=== PATIENT | female | born 1960 | race Caucasian/White ===

== ENCOUNTER → 2018-01-19 09:26 | Outpatient (CLI) | payer MEDICARE, MEDICAID, SELFPAY ==
--- NOTE | 2018-01-19 | DI.ECHO.S_ITS ---
[facility] +---------+ : : [address] : : : : [id number] : : : : Phone: [phone]+ Echocardiogram Report + + :Name: SHLOMO MENDES Study Date: 01/19/2018 Height: 69 in : :[facility] Weight: 234 lb : : Gender: Female BSA: 2.2 m2 : :: 1960 Age: 57 yrs BP: 142/80 mmHg: :Reason For Study: Hypertension, Aortic stenosis : :Ordering Physician: Johann : :Clarice Little Performed By: Michelle Corado : + + Interpretation Summary 1) Normal left ventricular thickness, size, and sysotlic function (EF 60-65%. 2) Normal right ventricular size and function. 3) Aortic valve is mildly calcific with moderately reduced excursion. Bicuspid valve can't be excluded. 4) There is mild aortic stenosis (valve area 1.6cm2, mean gradient 16mmHg). Mild aortic regurgitation present. 5) Mitral valve is calcific with mild to moderate mitral stenosis (mean transmitral inflow gradient of 7.6mmHg, heart rate in the 70s). 6) Compared to the Echo done 06/08/2015, no significant change. Procedure: A two-dimensional transthoracic echocardiogram with color flow and Doppler was performed. The study quality was technically adequate. Comparison is made with the echocardiogram of 06/08/2015. The patient was in normal sinus rhythm during the exam. Left Ventricle: The left ventricle is normal in size. Left ventricular wall thickness is mildly increased. The ejection fraction is estimated to be 60- 65%. There are no obvious focal wall motion abnormalities noted but poor endocardial definition reduces the sensitivity for the detection of such. Diastolic function could not be accurately assessed due to confounding valvular disease. Right Ventricle: The right ventricle is normal in size and function. Atria: The left atrium is moderately dilated. Right atrial size is normal. There is no Doppler evidence for an interatrial shunt. Mitral Valve: The mitral valve leaflets appear moderately thickened. There is moderate mitral annular calcification. The mitral valve mean gradient is 7.6 mmHg. There is mild to moderate mitral stenosis. There is mild mitral regurgitation. Aortic Valve: The aortic valve is mildly calcified. Bicuspid valve can't be excluded. The peak aortic velocity is 2.6 m/sec. The peak aortic velocity on the previous exam was 2.7 m/sec. The aortic valve mean gradient is 16 mmHg. The calculated aortic valve area is 1.6 cm2. There is mild aortic stenosis. There is mild aortic regurgitation. Tricuspid Valve: The tricuspid valve is normal in structure and function. There is a trace or physiologic amount of tricuspid regurgitation. The right ventricular systolic pressure is estimated at 25 mmHg assuming a right atrial pressure of 3 mm Hg. Pulmonic Valve: The pulmonic valve is normal in structure and function. There is a trace or physiologic amount of pulmonic regurgitation. Great Vessels: The aortic root is normal size. The ascending aorta is normal in size. The aortic arch is at the upper limits of normal in size. The IVC is of normal diameter and collapses greater than 50% with a sniff. This suggests a low right atrial pressure of 3 mm Hg. Pericardium/ Pleura There is no pericardial effusion. MMode/2D Measurements & Calculations LVIDd: 4.6 cm LVOT diam: 2.1 cm LVIDs: 2.2 cm Ao root diam: 3.2 cm FS: 50.8 % Aortic Jxn: 2.4 cm IVSd: 1.4 cm asc Aorta Diam: 3.3 cm LVPWd: 1.3 cm Ao Arch Diam (Prox Trans): 3.2 cm LV resendez. diameter/BSA (cm/m^2): 2.1 LV sys. diameter/BSA (cm/m^2): 1.0 LA A2 area: 24.5 cm2 RA long axis: 4.4 cm LA A4 area: 21.8 cm2 RA area: 13.6 cm2 LA length (vol): 5.6 cm RA vol: 35.8 ml LA vol: 80.4 ml RA : 16.2 ml/m2 LA vol index: 36.4 ml/m2 IVC diam: 1.3 cm RVD1 (basal): 2.9 cm RVD2 (mid): 2.3 cm TAPSE: 1.8 cm Doppler Measurements & Calculations Ao V2 max: 259.0 cm/sec LVOT Max Christofer: 116.4 cm/sec Ao V2 mean: 188.2 cm/sec LV V1 max P.4 mmHg Ao max P.8 mmHg LV V1 VTI: 26.5 cm Ao mean P.7 mmHg RAJWINDER(I,D): 1.6 cm2 Ao V2 VTI: 55.7 cm RAJWINDER(V,D): 1.6 cm2 sev ratio: 0.48 RAJWINDER indexed to BSA (cm^2/m^2): 0.75 AI P1/2t: 381.8 msec AI dec slope: 275.4 cm/sec2 MV E max christofer: 192.3 cm/sec TR max christofer: 233.4 cm/sec MV A max christofer: 145.7 cm/sec TR max P.8 mmHg MV E/A: 1.3 PA V2 max: 110.3 cm/sec Med Peak E' Christofer: 4.1 cm/sec PA V2 mean: 78.1 cm/sec E/E' med: 46.8 PA mean P.6 mmHg Lat Peak E' Christofer: 7.8 cm/sec PA Accel Time: 0.08 sec E/E' lat: 24.7 E/e' average: 35.8 MV dec time: 0.19 sec MV P1/2t: 54.2 msec MVA(VTI): 1.9 cm2 MVA(traced): 1.8 cm2 MV V2 mean: 131.9 cm/sec MV P1/2t max christofer: 193.0 cm/sec MV mean P.6 mmHg MVA(P1/2t): 4.1 cm2 MV V2 VTI: 47.5 cm Reading Physician:03:31 PM
== END ==
PROVIDERS: Visit Provider Internal Medicine Cardiovascular Disease
DX: I08.0 Rheumatic disorders of both mitral and aortic valves (principal); I10 Essential (primary) hypertension
CPT/HCPCS: 93306

== ENCOUNTER 2018-03-28 09:55 | Emergency (ER) | payer MEDICARE, MEDICAID, SELFPAY ==
--- NOTE | 2018-03-28 10:01 | ED_ITS ---
HPI - Extremity Problem General Chief complaint: Extremity Problem,Nontraumatic Stated complaint: R Knee Pain Time Seen by Provider: 03/28/18 10:01 Source: patient Mode of arrival: ambulatory Limitations: no limitations History of Present Illness HPI Narrative: Patient is a 57-year-old female here for evaluation of right knee pain and swelling. Patient reports no specific trauma. She states she did walk more than which she normally does yesterday while shopping. She states that was on a flat level surface. She did get in and out of a truck several times yesterday. No prior injury to the knee. Does have some swelling around the knee. No redness. No fevers. Review of Systems Constitutional Denies fever(s) Musculoskeletal Denies myalgias, Reports arthralgias (Right knee), Reports joint swelling ( Right knee), Reports limited range of motion (Right knee) and Denies tingling Integumentary/Breasts Denies rash Neurologic Denies tingling and Denies paresthesias PFSH Surgical History No pertinent past surgical history (Acute) Social History lives independently: Yes Smoking Status: Never smoker Exam Initial Vital Signs Initial Vital Signs: Vital Signs Temperature 97.2 F L 03/28/18 10:04 Pulse Rate 102 H 03/28/18 10:04 Respiratory Rate 17 03/28/18 10:04 Blood Pressure 124/60 03/28/18 10:04 Pulse Oximetry 98 03/28/18 10:04 Const General: cooperative, healthy appearing, comfortable, well developed, well groomed and No acute distress Orientation: alert, awake and oriented x3 HENMT Head: normal to inspection and normocephalic Cardio Pulses: dorsalis pedis present on the right Skin Lesions: no lesions Rashes: no rashes Neuro Other: Sensation intact to light touch right lower extremity Extrem Other: Right foot right ankle right hip right calf unremarkable. Patient does have mild swelling to the suprapatellar region of the right knee. Does have tenderness to palpation over the quadriceps tendon. Her focus of pain is along the MCL the right knee. No hamstring tenderness. Course Orders Ordered: Ibuprofen (Advil) 800 mg PO NOW ONE Stop: 03/28/18 10:13 Vital Signs - 8 hr 03/28/18 10:04 Temperature 97.2 F L Pulse Rate 102 H Respiratory Rate 17 Blood Pressure 124/60 Pulse Oximetry 98 MDM - Extremity (Nontraumatic) MDM Narrative Medical decision making narrative: Patient without trauma. I feel that x-rays would be unhelpful in today's encounter. No signs of infection. She does seem to be tender over the MCL. I do suspect that she strained her MCL yesterday while walking. We did discuss rice treatment. She was given an Santo bandage. She was given Motrin. Will hold on further workup for now. Patient was given return precautions. She expressed understanding and agreement with plan. Discharge Plan Departure Patient Disposition: Home Clinical Impression: Right knee sprain Instructions: How To Perform RICE (Rest, Ice, Compress, Elevate) Activity Restrictions/Additional Instructions: Use the Santo bandage like discussed. You can also purchase a knee brace and use it like we discussed. Recommend you start on anti-inflammatories such as Motrin /ibuprofen or Advil. You can walk on your knee. Try to keep it elevated and iced as much as possible. Return to the emergency department for any new or worsening symptoms
[2018-03-28 10:04] VITALS: BP 124/60; PULSE 102; RESP 17; TEMP 36.2; O2SAT 98
[2018-03-28] MEDS: IBUPROFEN 400 MG TABLET 800 MG PO (10:23)
[2018-03-28 10:41] VITALS: BP 122/72; PULSE 100; RESP 16
== END 2018-03-28 10:56 | disposition home or self-care (01) ==
PROVIDERS: Emergency Provider Emergency Medicine; PCP Nurse Practitioner Gerontology
DX: S83.91XA Sprain of unspecified site of right knee, initial encounter (principal); Y93.01 Activity, walking, marching and hiking
CPT/HCPCS: 99282; 99283

== ENCOUNTER 2018-12-09 11:24 | Emergency (ER) | payer MEDICARE, MEDICAID, SELFPAY ==
[2018-12-09 11:35] VITALS: BP 147/84; PULSE 101; RESP 19; TEMP 36.6; O2SAT 98
--- NOTE | 2018-12-09 11:36 | DI.US.S_ITS ---
PROCEDURE: US PERIPH VENOUS LOW EXTREM RT INDICATIONS: PAIN BEHIND KNEE, RADIATES TO ANKLE, CALF PAIN W/O INJURY TECHNIQUE: Real-time imaging, as well as color and pulse Doppler interrogation, were performed of the lower extremity deep veins from the inguinal ligament to the popliteal fossa. COMPARISON: None. FINDINGS: The common femoral, femoral and popliteal veins are normally compressible, and free of intraluminal thrombus. Color and pulse Doppler demonstrate normal phasic intraluminal flow. There is normal augmentation response to distal compression maneuver. IMPRESSION: No evidence of deep venous thrombosis. Dictated by: Noah Kurtz M.D. on 12/09/2018 at 12:45 Approved by: Noah Kurtz M.D. on 12/09/2018 at 12:46
--- NOTE | 2018-12-09 12:03 | ED.EXTPRO ---
HPI - Extremity Problem <KARLI Boogie - Last Filed: 12/09/18 14:41> General Chief complaint: Extremity Problem,Nontraumatic Stated complaint: Hurt rt calf area Time Seen by Provider: 12/09/18 11:34 Source: patient Mode of arrival: ambulatory Limitations: no limitations History of Present Illness HPI Narrative: The patient is a 58-year-old female nonsmoker with history of stroke who presents with a chief complaint of right calf pain. She states has been going on for the past few days. She thinks she might have over exercised and pulled a muscle, but she is also concerned about a blood clot as she has history of ITP. She states she takes an aspirin today. She denies any chest pain shortness of breath. She denies any cold clammy extremities. She denies any falls or trauma. She took a Tylenol for pain last night. She has not had anything today. Related Data Home Medications Medication Instructions Recorded Confirmed amlodipine 10 mg PO DAILY 12/09/18 12/09/18 diclofenac sodium 75 mg PO BID 12/09/18 12/09/18 hydrochlorothiazide 25 mg PO DAILY 12/09/18 12/09/18 levothyroxine 100 mcg PO DAILY 12/09/18 12/09/18 losartan 100 mg PO DAILY 12/09/18 12/09/18 metoprolol tartrate 100 mg PO DAILY 12/09/18 12/09/18 potassium chloride 20 meq PO DAILY 12/09/18 12/09/18 rosuvastatin 40 mg PO DAILY 12/09/18 12/09/18 venlafaxine 150 mg PO DAILY 12/09/18 12/09/18 Previous Rx's Medication Instructions Recorded methocarbamol [Robaxin] 500 mg PO TID PRN #20 tab 12/09/18 Allergies Allergy/AdvReac Type Severity Reaction Status Date / Time No Known Drug Allergies Allergy Verified 12/09/18 11:35 Review of Systems <KARLI Boogie - Last Filed: 12/09/18 14:41> Review of Systems GENERAL: Denies chills, fatigue, malaise, fever, sweats. HEENT: Denies sinus pain, ear pain, sore throat, difficulty swallowing, dizziness. RESPIRATORY: Denies dyspnea, cough, wheezing, hemoptysis, sputum. CARDIOVASCULAR: Denies chest pain, palpitations, orthopnea, edema, GASTROINTESTINAL: Denies nausea, vomiting, abdominal pain, diarrhea, constipation, melena. : Denies dysuria, frequency, incontinence, hematuria, urinary retention. MUSCULOSKELETAL: See HPI SKIN: Denies rash, skin lesions, or other NEUROLOGIC: Denies weakness, headache, numbness, change in speech, confusion, seizures, incoordination. PSYCHIATRIC: No concerning psychosocial issues. 12 point review of systems is negative except for those stated above PFSH <KARLI Boogie - Last Filed: 12/09/18 14:41> Surgical History (Updated 03/28/18 @ 10:14 by Nadir Guo DO) No pertinent past surgical history (Acute) Social History (Updated 03/28/18 @ 10:14 by Nadir Guo DO) lives independently: Yes Smoking Status: Never smoker Social History (Updated 03/28/18 @ 10:14 by Nadir Guo DO) lives independently: Yes Smoking Status: Never smoker Exam <KARLI Boogie - Last Filed: 12/09/18 14:41> Narrative Exam Narrative: GENERAL: Obese female lying on stretcher in no acute distress HEAD: Atraumatic. Normocephalic. No temporal or scalp tenderness. EYES: Pupils equal round and reactive. Extraocular motions intact. No scleral icterus. No injection or drainage. ENT: Nose without bleeding, purulent drainage or septal hematoma. Throat without erythema, tonsillar hypertrophy or exudate. Uvula midline. Airway patent. NECK: Trachea midline. No JVD or lymphadenopathy. Supple, nontender, no meningeal signs. CARDIOVASCULAR: Regular rate and rhythm without murmurs, gallops, or rubs. RESPIRATORY: Clear to auscultation. Breath sounds equal bilaterally. No wheezes, rales, or rhonchi. No cough. No increased respiratory effort. No stridor. GASTROINTESTINAL: Abdomen soft, non-tender, nondistended. No hepato-splenomegaly, or palpable masses. No guarding. Active bowel sounds all 4 quadrants. EXTREMITIES: Slight pain to pain patient right lower leg. Positive pedal pulses bilaterally. Negative Homans sign right side. BACK: Nontender without deformity or crepitance. No flank tenderness. NEURO: AOx3. SKIN: No rash or erythema. Initial Vital Signs Initial Vital Signs: Vital Signs Temperature 97.8 F 12/09/18 11:35 Pulse Rate 101 H 12/09/18 11:35 Respiratory Rate 19 12/09/18 11:35 Blood Pressure 147/84 H 12/09/18 11:35 Pulse Oximetry 98 12/09/18 11:35 <Era Kothari DO - Last Filed: 12/09/18 18:35> Initial Vital Signs Initial Vital Signs: Vital Signs Temperature 97.8 F 12/09/18 11:35 Pulse Rate 101 H 12/09/18 11:35 Respiratory Rate 19 12/09/18 11:35 Blood Pressure 147/84 H 12/09/18 11:35 Pulse Oximetry 98 12/09/18 11:35 Course <KARLI Boogie - Last Filed: 12/09/18 14:41> Orders Ordered: ED Orders 12/09/18 11:36 US periph venous low extrem rt Stat Discontinued Medications Methocarbamol (Robaxin) 500 mg PO NOW ONE Stop: 12/09/18 13:03 Last Admin: 12/09/18 13:17 Dose: 500 mg Vital Signs - 8 hr 12/09/18 11:35 12/09/18 12:51 12/09/18 13:30 Temperature 97.8 F Pulse Rate 101 H 88 92 H Respiratory Rate 19 17 19 Blood Pressure [Right Arm] 147/84 H 134/80 144/88 H Pulse Oximetry 98 96 100 <Era Kothari DO - Last Filed: 12/09/18 18:35> Orders Ordered: ED Orders 12/09/18 11:36 US periph venous low extrem rt Stat Discontinued Medications Methocarbamol (Robaxin) 500 mg PO NOW ONE Stop: 12/09/18 13:03 Last Admin: 12/09/18 13:17 Dose: 500 mg Vital Signs - 8 hr 12/09/18 11:35 12/09/18 12:51 12/09/18 13:30 Temperature 97.8 F Pulse Rate 101 H 88 92 H Respiratory Rate 19 17 19 Blood Pressure [Right Arm] 147/84 H 134/80 144/88 H Pulse Oximetry 98 96 100 MDM - Extremity (Nontraumatic) <KARLI Boogie Last Filed: 12/09/18 14:41> Imaging Data Venous US: Radiologist's impression: Libby Malloy 58 F [address] [address] Ultrasound Report Signed Patient: Libby MalloyMR#: [id number] : 1960cct:[id number] Age/Sex: 58 / FDate of Service: 12/09/18 Loc: ED Accession Number: [id number] Procedure: US periph venous low extrem rt Ordering Provider: Era Dejesus-MARICRUZ PROCEDURE: US PERIPH VENOUS LOW EXTREM RT INDICATIONS: PAIN BEHIND KNEE, RADIATES TO ANKLE, CALF PAIN W/O INJURY TECHNIQUE: Real-time imaging, as well as color and pulse Doppler interrogation, were performed of the lower extremity deep veins from the inguinal ligament to the popliteal fossa. COMPARISON: None. FINDINGS: The common femoral, femoral and popliteal veins are normally compressible, and free of intraluminal thrombus. Color and pulse Doppler demonstrate normal phasic intraluminal flow. There is normal augmentation response to distal compression maneuver. IMPRESSION: No evidence of deep venous thrombosis. Dictated by: Noah Kurtz M.D. on 12/09/2018 at 12:45 Approved by: Noah Kurtz M.D. on 12/09/2018 at 12:46 [facility] Narrative Medical decision making narrative: The patient is a 58-year-old female who presents with a chief complaint right leg pain. She thinks she over did not on physical therapy, but also expresses concern about blood clot. Given her pain for a week combined with her history of stroke, I did obtain a ultrasound, which shows no DVT. She is nontoxic appearing, neurovascularly intact throughout her stay in the ER. I did discuss at length rest ice compression elevation as well as [id number] pain medications as needed and able. The patient did request something stronger, so we created a trial of a muscle relaxer. She was given Robaxin in the Emergency Department. I discussed at length follow up with her PCP and coming back to the ER for any acute concerns such as chest pain or shortness of breath. We did discuss doing x-ray, but patient denied any recent trauma or falls, so we elected to defer at this point time. Patient has no questions or concerns upon discharge. Discharge Plan Departure Patient Disposition: Home Clinical Impression: Acute leg pain Qualifiers: Laterality: right Qualified Code(s): M79.604 - Pain in right leg Discharge Date/Time: 12/09/18 13:42 Interventions: ED Discharge Assessment Last Done: 12/09/18 13:41 Instructions: How To Perform RICE (Rest, Ice, Compress, Elevate), DI for Leg Pain, DI for Muscle Spasm Activity Restrictions/Additional Instructions: I sent your prescription to [facility] in [place] Please use rest ice compression elevation. Please use [id number] pain medications as needed and able. Please come back to the emergency department for any acute concerns such as chest pain or shortness Of breath. Please follow up with primary care provider. Your ultrasound came back with no evidence of blood clots today. Prescriptions: New methocarbamol [Robaxin] 500 mg tablet 500 mg PO TID PRN (Reason: muscle pain) Qty: 20 RF: 0 No Action metoprolol tartrate 100 mg tablet 100 mg PO DAILY RF: 0 venlafaxine 150 mg capsule,extended release 24hr 150 mg PO DAILY RF: 0 levothyroxine 100 mcg tablet 100 mcg PO DAILY RF: 0 amlodipine 10 mg tablet 10 mg PO DAILY RF: 0 diclofenac sodium 75 mg tablet,delayed release (DR/EC) 75 mg PO BID RF: 0 hydrochlorothiazide 25 mg tablet 25 mg PO DAILY RF: 0 losartan 100 mg tablet 100 mg PO DAILY RF: 0 rosuvastatin 40 mg tablet 40 mg PO DAILY RF: 0 potassium chloride 20 mEq tablet extended release 20 meq PO DAILY RF: 0 Referrals: Lashawn Willson ARNP [Primary Care Provider] - <Era Kothari DO - Last Filed: 12/09/18 18:35> [facility] ED Attending Lori Attestation: I was immediately available in the department for consultation. This documentation has been reviewed and I agree with assessment and plan. Supervised by Era Kothari DO
--- NOTE | 2018-12-09 12:07 | ED_ITS ---
HPI - Extremity Problem <KARLI Boogie - Last Filed: 12/09/18 14:41> General Chief complaint: Extremity Problem,Nontraumatic Stated complaint: Hurt rt calf area Time Seen by Provider: 12/09/18 11:34 Source: patient Mode of arrival: ambulatory Limitations: no limitations History of Present Illness HPI Narrative: The patient is a 58-year-old female nonsmoker with history of stroke who presents with a chief complaint of right calf pain. She states has been going on for the past few days. She thinks she might have over exercised and pulled a muscle, but she is also concerned about a blood clot as she has history of ITP. She states she takes an aspirin today. She denies any chest pain shortness of breath. She denies any cold clammy extremities. She denies any falls or trauma. She took a Tylenol for pain last night. She has not had anything today. Related Data Home Medications Medication Instructions Recorded Confirmed amlodipine 10 mg PO DAILY 12/09/18 12/09/18 diclofenac sodium 75 mg PO BID 12/09/18 12/09/18 hydrochlorothiazide 25 mg PO DAILY 12/09/18 12/09/18 levothyroxine 100 mcg PO DAILY 12/09/18 12/09/18 losartan 100 mg PO DAILY 12/09/18 12/09/18 metoprolol tartrate 100 mg PO DAILY 12/09/18 12/09/18 potassium chloride 20 meq PO DAILY 12/09/18 12/09/18 rosuvastatin 40 mg PO DAILY 12/09/18 12/09/18 venlafaxine 150 mg PO DAILY 12/09/18 12/09/18 Previous Rx's Medication Instructions Recorded methocarbamol [Robaxin] 500 mg PO TID PRN #20 tab 12/09/18 Allergies Allergy/AdvReac Type Severity Reaction Status Date / Time No Known Drug Allergies Allergy Verified 12/09/18 11:35 Review of Systems <KARLI Boogie - Last Filed: 12/09/18 14:41> Review of Systems GENERAL: Denies chills, fatigue, malaise, fever, sweats. HEENT: Denies sinus pain, ear pain, sore throat, difficulty swallowing, dizziness. RESPIRATORY: Denies dyspnea, cough, wheezing, hemoptysis, sputum. CARDIOVASCULAR: Denies chest pain, palpitations, orthopnea, edema, GASTROINTESTINAL: Denies nausea, vomiting, abdominal pain, diarrhea, constipation, melena. : Denies dysuria, frequency, incontinence, hematuria, urinary retention. MUSCULOSKELETAL: See HPI SKIN: Denies rash, skin lesions, or other NEUROLOGIC: Denies weakness, headache, numbness, change in speech, confusion, seizures, incoordination. PSYCHIATRIC: No concerning psychosocial issues. 12 point review of systems is negative except for those stated above PFSH <KARLI Boogie - Last Filed: 12/09/18 14:41> Surgical History (Updated 03/28/18 @ 10:14 by Nadir Guo DO) No pertinent past surgical history (Acute) Social History (Updated 03/28/18 @ 10:14 by Nadir Guo DO) lives independently: Yes Smoking Status: Never smoker Social History (Updated 03/28/18 @ 10:14 by Nadir Guo DO) lives independently: Yes Smoking Status: Never smoker Exam <KARLI Boogie - Last Filed: 12/09/18 14:41> Narrative Exam Narrative: GENERAL: Obese female lying on stretcher in no acute distress HEAD: Atraumatic. Normocephalic. No temporal or scalp tenderness. EYES: Pupils equal round and reactive. Extraocular motions intact. No scleral icterus. No injection or drainage. ENT: Nose without bleeding, purulent drainage or septal hematoma. Throat without erythema, tonsillar hypertrophy or exudate. Uvula midline. Airway patent. NECK: Trachea midline. No JVD or lymphadenopathy. Supple, nontender, no meningeal signs. CARDIOVASCULAR: Regular rate and rhythm without murmurs, gallops, or rubs. RESPIRATORY: Clear to auscultation. Breath sounds equal bilaterally. No wheezes, rales, or rhonchi. No cough. No increased respiratory effort. No stridor. GASTROINTESTINAL: Abdomen soft, non-tender, nondistended. No hepato- splenomegaly, or palpable masses. No guarding. Active bowel sounds all 4 quadrants. EXTREMITIES: Slight pain to pain patient right lower leg. Positive pedal pulses bilaterally. Negative Homans sign right side. BACK: Nontender without deformity or crepitance. No flank tenderness. NEURO: AOx3. SKIN: No rash or erythema. Initial Vital Signs Initial Vital Signs: Vital Signs Temperature 97.8 F 12/09/18 11:35 Pulse Rate 101 H 12/09/18 11:35 Respiratory Rate 19 12/09/18 11:35 Blood Pressure 147/84 H 12/09/18 11:35 Pulse Oximetry 98 12/09/18 11:35 <Era Kothari DO - Last Filed: 12/09/18 18:35> Initial Vital Signs Initial Vital Signs: Vital Signs Temperature 97.8 F 12/09/18 11:35 Pulse Rate 101 H 12/09/18 11:35 Respiratory Rate 19 12/09/18 11:35 Blood Pressure 147/84 H 12/09/18 11:35 Pulse Oximetry 98 12/09/18 11:35 Course <KARLI Boogie - Last Filed: 12/09/18 14:41> Orders Ordered: ED Orders 12/09/18 11:36 US periph venous low extrem rt Stat Discontinued Medications Methocarbamol (Robaxin) 500 mg PO NOW ONE Stop: 12/09/18 13:03 Last Admin: 12/09/18 13:17 Dose: 500 mg Vital Signs - 8 hr 12/09/18 11:35 12/09/18 12:51 12/09/18 13:30 Temperature 97.8 F Pulse Rate 101 H 88 92 H Respiratory Rate 19 17 19 Blood Pressure [Right Arm] 147/84 H 134/80 144/88 H Pulse Oximetry 98 96 100 <Era Kothari DO - Last Filed: 12/09/18 18:35> Orders Ordered: ED Orders 12/09/18 11:36 US periph venous low extrem rt Stat Discontinued Medications Methocarbamol (Robaxin) 500 mg PO NOW ONE Stop: 12/09/18 13:03 Last Admin: 12/09/18 13:17 Dose: 500 mg Vital Signs - 8 hr 12/09/18 11:35 12/09/18 12:51 12/09/18 13:30 Temperature 97.8 F Pulse Rate 101 H 88 92 H Respiratory Rate 19 17 19 Blood Pressure [Right Arm] 147/84 H 134/80 144/88 H Pulse Oximetry 98 96 100 MDM - Extremity (Nontraumatic) <KARLI Boogie Last Filed: 12/09/18 14:41> Imaging Data Venous US: Radiologist's impression: Libby Malloy 58 F [address] [address] Ultrasound Report Signed Patient: Libby MalloyMR#: [id number] : 1960cct:[id number] Age/Sex: 58 / FDate of Service: 12/09/18 Loc: ED Accession Number: [id number] Procedure: US periph venous low extrem rt Ordering Provider: Era Dejesus-MARICRUZ PROCEDURE: US PERIPH VENOUS LOW EXTREM RT INDICATIONS: PAIN BEHIND KNEE, RADIATES TO ANKLE, CALF PAIN W/O INJURY TECHNIQUE: Real-time imaging, as well as color and pulse Doppler interrogation, were performed of the lower extremity deep veins from the inguinal ligament to the popliteal fossa. COMPARISON: None. FINDINGS: The common femoral, femoral and popliteal veins are normally compressible, and free of intraluminal thrombus. Color and pulse Doppler demonstrate normal phasic intraluminal flow. There is normal augmentation response to distal compression maneuver. IMPRESSION: No evidence of deep venous thrombosis. Dictated by: Noah Kurtz M.D. on 12/09/2018 at 12:45 Approved by: Noah Kurtz M.D. on 12/09/2018 at 12:46 [facility] Narrative Medical decision making narrative: The patient is a 58-year-old female who presents with a chief complaint right leg pain. She thinks she over did not on physical therapy, but also expresses concern about blood clot. Given her pain for a week combined with her history of stroke, I did obtain a ultrasound, which shows no DVT. She is nontoxic appearing, neurovascularly intact throughout her stay in the ER. I did discuss at length rest ice compression elevation as well as [id number] pain medications as needed and able. The patient did request something stronger, so we created a trial of a muscle relaxer. She was given Robaxin in the Emergency Department. I discussed at length follow up with her PCP and coming back to the ER for any acute concerns such as chest pain or shortness of breath. We did discuss doing x-ray, but patient denied any recent trauma or falls, so we elected to defer at this point time. Patient has no questions or concerns upon discharge. Discharge Plan Departure Patient Disposition: Home Clinical Impression: Acute leg pain Qualifiers: Laterality: right Qualified Code(s): M79.604 - Pain in right leg Discharge Date/Time: 12/09/18 13:42 Interventions: ED Discharge Assessment Last Done: 12/09/18 13:41 Instructions: How To Perform RICE (Rest, Ice, Compress, Elevate), DI for Leg Pain, DI for Muscle Spasm Activity Restrictions/Additional Instructions: I sent your prescription to [facility] in [place] Please use rest ice compression elevation. Please use [id number] pain medications as needed and able. Please come back to the emergency department for any acute concerns such as chest pain or shortness Of breath. Please follow up with primary care provider. Your ultrasound came back with no evidence of blood clots today. Prescriptions: New methocarbamol [Robaxin] 500 mg tablet 500 mg PO TID PRN (Reason: muscle pain) Qty: 20 RF: 0 No Action metoprolol tartrate 100 mg tablet 100 mg PO DAILY RF: 0 venlafaxine 150 mg capsule,extended release 24hr 150 mg PO DAILY RF: 0 levothyroxine 100 mcg tablet 100 mcg PO DAILY RF: 0 amlodipine 10 mg tablet 10 mg PO DAILY RF: 0 diclofenac sodium 75 mg tablet,delayed release (DR/EC) 75 mg PO BID RF: 0 hydrochlorothiazide 25 mg tablet 25 mg PO DAILY RF: 0 losartan 100 mg tablet 100 mg PO DAILY RF: 0 rosuvastatin 40 mg tablet 40 mg PO DAILY RF: 0 potassium chloride 20 mEq tablet extended release 20 meq PO DAILY RF: 0 Referrals: Lashawn Willson ARNP [Primary Care Provider] - <Era Kothari DO - Last Filed: 12/09/18 18:35> [facility] ED Attending Sandeepature Attestation: I was immediately available in the department for consultation. This document ation has been reviewed and I agree with assessment and plan. Supervised by Era Kothari DO
[2018-12-09 12:51] VITALS: BP 134/80; PULSE 88; RESP 17; O2SAT 96
[2018-12-09] MEDS: METHOCARBAMOL 500 MG TABLET PO (13:17)
[2018-12-09 13:30] VITALS: BP 144/88; PULSE 92; RESP 19; O2SAT 100
== END 2018-12-09 13:42 | disposition home or self-care (01) ==
PROVIDERS: Emergency Provider Nurse Practitioner Family; PCP Nurse Practitioner Gerontology
DX: M79.604 Pain in right leg (principal)
CPT/HCPCS: 93971; 99283

== ENCOUNTER → 2019-09-14 12:30 | Outpatient (CLI) | payer OTHER, MEDICAID, SELFPAY ==
--- NOTE | 2019-09-14 | DI.MRI.S_ITS ---
PROCEDURE: MR HEAD/BRAIN WO/W CON INDICATIONS: Benign neoplasm of meninges, unspecified. 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 TECHNIQUE: Noncontrast axial T1 spin echo, axial T2 fast spin echo, sagittal and axial FLAIR, coronal T2 fast spin echo, axial gradient echo, axial diffusion and ADC through the brain. After the administration of contrast, axial and coronal 3D VIBE or T1 spin echo with fat saturation through the brain. COMPARISON: None. FINDINGS: Image quality: Degraded by significant motion artifact. CSF Spaces: Basal cisterns are patent. No extra-axial fluid collections. Ventricles are normal in size and shape. Brain: No midline shift. Postsurgical changes related to prior aneurysm clip involving the right aspect of the [place]. Scattered small white matter changes, probably represent chronic microvascular ischemic disease, versus statistically less likely demyelination or other infectious, inflammatory, neurodegenerative etiology, technically nonspecific. No intracranial bleeds. There is asymmetric enhancement within the left cavernous sinus, for example measuring 0.8 x 1.2 cm on coronal image 122/15. No abnormal intracranial enhancement. The brainstem appears normal. Diffusion-weighted images demonstrate no acute ischemic insults. No chronic ischemic insults. Normal intravascular flow voids are present. Skull and face: Postsurgical changes from right-sided craniotomy Orbits appear normal. Sinuses: Bilateral maxillary sinus disease. IMPRESSION: Post surgical changes related to right-sided craniotomy and aneurysm clip. Asymmetric, increased enhancement of the left cavernous sinus (compared to the right) are presumably related to reported history of cavernous sinus meningioma. Definitive assessment is precluded given the absence of prior studies. If previous examinations are obtainable, these could be compared and an addendum dictated. Otherwise, six-month surveillance with contrast-enhanced brain MRI could be performed Motion degraded examination Mild bilateral maxillary sinus disease Diffuse small white matter changes, probably represent chronic microvascular ischemic disease, versus statistically less likely demyelination or other infectious, inflammatory, neurodegenerative etiology, technically nonspecific. Dictated by: Noah Krutz M.D. on 09/14/2019 at 14:30 Approved by: Noah Kurtz M.D. on 09/14/2019 at 14:45
== END ==
PROVIDERS: PCP Nurse Practitioner Gerontology; Referring Provider Internal Medicine; Visit Provider Internal Medicine
DX: D32.9 Benign neoplasm of meninges, unspecified (principal); J32.0 Chronic maxillary sinusitis
CPT/HCPCS: 70553

== ENCOUNTER → 2020-02-03 12:56 | Outpatient (CLI) | payer OTHER, MEDICAID, SELFPAY ==
--- NOTE | 2020-02-03 12:59 | DI.ECHO.S_ITS ---
[facility]---------+ [facility] +---------+ : : [address] : : : : [id number] : : : : Phone: [phone]+ Echocardiogram Report + + :Name: SHLOMO MENDES Study Date: 02/03/2020 Height: 69 in : :[facility] Weight: 240 lb : : Gender: Female BSA: 2.2 m2 : :: 1960 Age: 59 yrs BP: 159/91 mmHg: :Reason For Study: AORTIC VALVE STENOSIS : :Ordering Physician: JOURDAN, : :ITZEL Performed By: Misty Mora : :Referring: ITZEL LITTLE : + + Interpretation Summary 1) Normal left ventricular size, wall motion, and systolic function (EF 60- 65%). 2) Normal right ventricular size and function. 3) Aortic valve is mildly calcific with moderately reduced excursion. Bicuspid valve can't be excluded. 4) There is moderate aortic stenosis (valve area 1.3cm2, mean gradient 24mmHg). Mild aortic regurgitation present. 5) Mitral valve is calcific with mild to moderate mitral stenosis (mean transmitral inflow gradient of 9.7mmHg, heart rate in the 90s). 6) Compared to the Echo done 01/19/2018, aortic stenosis has progressed from mild to moderate on this study. Procedure: A two-dimensional transthoracic echocardiogram with color flow and Doppler was performed. The study quality was technically adequate. Comparison is made with the echocardiogram of 01/19/2018. The heart rate ranged between 89-95 bpm during the study. Left Ventricle: The left ventricle is normal in size. Left ventricular wall thickness is mildly increased. The ejection fraction is estimated to be 60- 65%. Diastolic function could not be accurately assessed due to confounding valvular disease. Right Ventricle: The right ventricle is normal in size and function. Atria: The left atrium is moderately dilated. Right atrial size is normal. There is no Doppler evidence for an interatrial shunt. Mitral Valve: The mitral valve leaflets are moderately calcified. There is moderate to severe mitral annular calcification. The mitral valve mean gradient is 9.7 mmHg. There is moderate mitral stenosis. There is mild to moderate mitral regurgitation. Aortic Valve: The aortic valve is moderately calcified. There is moderate aortic stenosis. The peak aortic velocity is 3.0 m/sec. The aortic valve mean gradient is 24 mmHg. The calculated aortic valve area is 1.3 cm2. There is mild aortic regurgitation. Tricuspid Valve: The tricuspid valve is not well visualized, but is grossly normal. There is mild tricuspid regurgitation. Pulmonary artery pressures cannot be estimated because of the lack of a measurable TR jet velocity but the IVC suggests a CVP of around 3 mmHg. Pulmonic Valve: The pulmonic valve is not well seen, but is grossly normal. There is mild pulmonic regurgitation. Great Vessels: The aortic root is normal size. The dimensions of the ascending aorta are normal. The IVC is of normal diameter and collapses greater than 50% with a sniff. This suggests a low right atrial pressure of 3 mm Hg. Pericardium/ Pleura There is no pericardial effusion. There is no pleural effusion. MMode/2D Measurements & Calculations LVIDd: 4.9 cm LVOT diam: 2.1 cm LVIDs: 3.0 cm Ao root diam: 3.1 cm FS: 39.2 % asc Aorta Diam: 3.2 cm EPSS: 1.6 cm Ao Arch Diam (Prox Trans): 2.6 cm IVSd: 1.3 cm LVPWd: 1.2 cm LV resendez. diameter/BSA (cm/m^2): 2.2 LV sys. diameter/BSA (cm/m^2): 1.3 LA A2 area: 29.4 cm2 RA long axis: 5.3 cm LA A4 area: 26.0 cm2 RA area: 17.8 cm2 LA length (vol): 6.2 cm RA vol: 50.9 ml LA vol: 104.1 ml RA : 22.8 ml/m2 LA vol index: 46.6 ml/m2 IVC diam: 1.7 cm RVD1 (basal): 3.3 cm TAPSE: 1.8 cm Doppler Measurements & Calculations Ao V2 max: 303.4 cm/sec LVOT Max Christofer: 106.9 cm/sec Ao V2 mean: 235.6 cm/sec LV V1 max P.6 mmHg Ao max P.5 mmHg LV V1 VTI: 23.7 cm Ao mean P.5 mmHg RAJWINDER(I,D): 1.3 cm2 Ao V2 VTI: 64.2 cm RAJWINDER(V,D): 1.3 cm2 sev ratio: 0.37 RAJWINDER indexed to BSA (cm^2/m^2): 0.60 MV E max christofer: 173.5 cm/sec PA V2 max: 78.7 cm/sec MV A max christofer: 166.6 cm/sec PA V2 mean: 53.9 cm/sec MV E/A: 1.0 PA mean P.3 mmHg Med Peak E' Christofer: 4.8 cm/sec PA pr(Accel): 37.9 mmHg E/E' med: 35.8 Lat Peak E' Christofer: 3.9 cm/sec E/E' lat: 44.8 E/e' average: 40.3 MV dec time: 0.36 sec MVA(VTI): 1.9 cm2 MV V2 mean: 148.9 cm/sec SV(LVOT): 86.1 ml MV mean P.7 mmHg MV V2 VTI: 45.5 cm Reading Physician:08:28 PM
--- NOTE | 2020-02-03 13:00 | DI.US.S_ITS ---
PROCEDURE: US CAROTID DOPPLER BI INDICATIONS: Aortic valve stenosis; Left carotid artery occlusion TECHNIQUE: Color and pulse Doppler interrogation was performed of both carotid systems, with image documentation and velocity measurements. COMPARISON: None. FINDINGS: Stenosis calculations are based on SRU (Society of Radiologists in Ultrasound) criteria. Right side: Brachial blood pressure: Not measured Common carotid artery peak systolic velocity: 57 cm/sec. Internal carotid artery peak systolic velocity: 107 cm/sec. Internal carotid artery end diastolic velocity: 42 cm/sec. External carotid artery peak systolic velocity: 86 cm/sec. ICA/CCA peak systolic ratio: 1.87 Gonzalez scale imaging description: Atherosclerotic changes are seen. The right internal carotid artery is tortuous. Percent internal carotid artery stenosis: Less than 50% by velocity criteria. Vertebral artery: Flow direction is antegrade. Left side: Brachial blood pressure: Not measured Common carotid artery peak systolic velocity: 34 cm/sec. Internal carotid artery peak systolic velocity: The proximal internal carotid artery demonstrates a small amount of flow, with a peak systolic velocity of 26 centimeters/second. The mid and distal internal carotid artery are occluded. Internal carotid artery end diastolic velocity: 2 cm/sec. External carotid artery peak systolic velocity: 64 cm/sec. ICA/CCA peak systolic ratio: 0.77 Gonzalez scale imaging description: The left external carotid artery is prominent. Percent internal carotid artery stenosis: 100% within the mid and distal portions Vertebral artery: Flow direction is antegrade. IMPRESSION: Consistent with the given history, the mid and distal portions of the LEFT internal carotid artery are occluded, with a small amount of flow seen within the proximal most left internal carotid artery. The LEFT external carotid artery is prominent. The RIGHT internal carotid artery is tortuous. Dictated by: Umer Trejo M.D. on 02/03/2020 at 16:12 Approved by: Umer Trejo M.D. on 02/03/2020 at 16:20
== END ==
PROVIDERS: PCP Internal Medicine; Referring Provider Internal Medicine Cardiovascular Disease; Visit Provider Internal Medicine Cardiovascular Disease
DX: I08.3 Combined rheumatic disorders of mitral, aortic and tricuspid valves (principal); I65.22 Occlusion and stenosis of left carotid artery
CPT/HCPCS: 93306; 93880

== ENCOUNTER 2020-02-14 14:10 | Emergency (ER) | payer OTHER, MEDICAID, SELFPAY ==
[2020-02-14] VITALS (17 sets, daily range): BP systolic 138–166; BP diastolic 63–87; PULSE 84–105; RESP 17–42; TEMP 36.9; O2SAT 93–98; BMI 35.4
--- NOTE | 2020-02-14 14:44 | DI.RAD.S_ITS ---
PROCEDURE: XR CHEST 1V INDICATIONS: weakness TECHNIQUE: One view of the chest was acquired. COMPARISON: None. FINDINGS: Surgical changes and devices: Left axillary and upper abdominal clips. Right hemithorax clips. Lungs and pleura: Prominent pulmonary vasculature markings bilaterally. Mild opacity at the right medial lung base. No pleural effusions or pneumothorax. Mediastinum: Mediastinal contours appear normal. Heart size is normal. Bones and chest wall: No suspicious bony lesions. Overlying soft tissues appear unremarkable. IMPRESSION: Mild opacity at the right medial lung base. This could be due to pneumonia, atelectasis, or aspiration. Pulmonary vasculature engorgement without overt fluid overload/CHF. Dictated by: Jimmie Lee M.D. on 02/14/2020 at 14:57 Approved by: Jimmie Lee M.D. on 02/14/2020 at 14:59
--- NOTE | 2020-02-14 14:46 | DI.CT.S_ITS ---
PROCEDURE: CT HEAD/BRAIN WO CON INDICATIONS: slow speech TECHNIQUE: Noncontrast 4.5 mm thick angled axial sections acquired from the foramen magnum to the vertex, with coronal and sagittal reformats. For radiation dose reduction, the following was used: automated exposure control, adjustment of mA and/or kV according to patient size. COMPARISON: [facility], MR, MR HEAD/BRAIN WO/W CON, 09/14/2019, 13:01. FINDINGS: Image quality: Excellent. CSF spaces: Basal cisterns are patent. No extra-axial fluid collections. Ventricles are normal in size and shape. Brain: There are old infarcts with encephalomalacia involving the right frontal lobe, right parietal lobe and left frontal lobe. There is mild cerebral volume loss. There mild periventricular white matter chronic small vessel ischemic changes. No midline shift. No intracranial masses or hemorrhage. Gonzalez-white matter interface is normal. Skull and face: Right frontal parietal craniotomy. Sinuses: Visualized sinuses and mastoids are clear. IMPRESSION: 1. No acute intracranial abnormalities. 2. 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 Dictated by: Kosta Nichols M.D. on 02/14/2020 at 15:00 Approved by: Kosta Nichols M.D. on 02/14/2020 at 15:08
--- NOTE | 2020-02-14 14:52 | DI.CT.S_ITS ---
PROCEDURE: CT ANGIO HEAD AND NECK INDICATIONS: weakness, intermittent slurred speech, history of aneurysm TECHNIQUE: Noncontrast images were performed earlier in the day and not repeated. After the administration of intravenous contrast, 1 mm thick sections acquired from the aortic arch through the [place] of [place]. Post-contrast 4.5 mm thick sections then re-acquired from the foramen magnum to the vertex. 3-dimensional svmxkmf-bbfoqpymr-xdufjyxosz (MIP) and/or volume rendering reformats were acquired of the central intracranial vasculature and neck separately. COMPARISON: [facility], MR, MR HEAD/BRAIN WO/W CON, 09/14/2019, 13:01. [facility], CT, CT HEAD/BRAIN WO CON, 02/14/2020, 14:46. FINDINGS: Image quality: Excellent. BRAIN: CSF spaces: Stable asymmetry can be seen in the lateral ventricles, with the anterior aspect of the left lateral ventricle larger than the right. Basal cisterns are patent. No extra-axial fluid collections. Brain: Abnormal enhancement can be seen involving the region of the left cavernous sinus No midline shift. No intracranial bleeds. Gonzalez-white matter interface appears intact. 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 Skull and face: Right-sided and frontal craniotomy changes are seen. Calvarium and facial bones appear intact, without suspicious lesions. Orbits appear normal. Sinuses: Sinuses and mastoids are clear. 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 Adjacent to the aneurysm clip, there is a wide necked aneurysm seen just superior to the aneurysm clip self, measuring 7 mm. Abnormally prominent vessels can be seen within the right cavernous sinus with a connection seen to the basilar artery, as on series 7, image 88 and on series 20, image 90. No flow is seen within the distal left internal carotid artery. The flow within the paired anterior cerebral arteries is normal and symmetric. The flow within the middle cerebral arteries is normal and symmetric. The anterior communicating artery is seen. Posterior circulation: Visualized portions of the vertebral arteries demonstrate normal caliber, and join to form a normal appearing basilar artery. Flow within the posterior cerebral arteries is normal and symmetric. No aneurysms are seen. NECK CT ANGIOGRAPHY: Carotid system: The great vessels demonstrate a conventional anatomy as they arise from the aortic arch. Atherosclerotic calcification of the aortic arch is noted. The origins of the common carotid arteries appear patent. The common carotid arteries demonstrate normal caliber and courses. The bifurcation regions demonstrate atherosclerotic calcification and irregularity. No hemodynamically significant stenosis can be seen. No flow is seen within the distal aspect of the left internal carotid artery. There is compensatory hypertrophy seen involving the right internal carotid artery. The right internal carotid artery is tortuous. Posterior circulation: The origins of the vertebral arteries both appear widely patent. The more superior extracranial portions of both vertebral arteries also demonstrate normal courses and calibers. They join to form a normal appearing basilar artery. Soft tissues: Visualized neck soft tissues demonstrate no suspicious abnormalities. Prior left hemithyroidectomy change can be seen. Bones: No suspicious bony lesions. Visualized cervical spine appears normally aligned. Moderate cervical spine degenerative changes are seen. IMPRESSION: Postoperative changes are seen on the right, with a right carotid terminus aneurysm clip. Adjacent to the aneurysm clip, there is an apparent 7 mm aneurysm seen. Abnormal vessels can be seen involving the right cavernous sinus, with a connection between these anomalous vessels and the basilar artery. 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 Please correlate with known patient history and any prior outside imaging. This may be related to a persistent acoustic artery. Abnormal enhancement can be seen involving the left cavernous sinus. 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 This abnormal enhancement is attributed to such. No flow seen within the distal aspect of the left internal carotid artery. Please correlate with known history, including potential postoperative change. Incidental note is made of: Cervical spine degenerative change Prior left hemithyroidectomy Any quantitative measurements of stenosis were performed using NASCET criteria. Dictated by: Umer Trejo M.D. on 02/14/2020 at 15:14 Approved by: Umer Trejo M.D. on 02/14/2020 at 15:27
--- NOTE | 2020-02-14 15:17 | ED_ITS ---
HPI - Weakness <CATINA Mary - Last Filed: 02/14/20 20:55> General Chief complaint: Weakness Stated complaint: Just Not Feeling Good Time Seen by Provider: 02/14/20 14:33 Source: patient Mode of arrival: Ambulatory Limitations: no limitations History of Present Illness HPI Narrative: 59yo female with a history of a brain aneurysm and to meningiomas removed on the right side of her brain (last surgery 2005), hypertension, thyroid disease, presents emergency department for increasing weakness over the past 5 days. Patient also notes she has had left-sided hand tremors for the pa st 3-4 weeks, she seen her PCP for this and was referred to Neurology. Her friend reports intermittent slurred speech over the past week which is not present at the moment. Her friend states she is not remembering details as she usually does over the past few days. Her friend at lunch today thought she possibly saw the left side of her face drooping, denies any facial changes at this time. Patient denies any other symptoms other than fatigue. She denies double vision, vision loss, difficulty swallowing, limb weakness, speech changes that she has noticed, chest pain, shortness of breath, dizziness, cough, fevers, chills, nausea, vomiting, diarrhea, or any other concerns. Related Data Home Medications Medication Instructions Recorded Confirmed amlodipine 10 mg PO DAILY 12/09/18 12/09/18 diclofenac sodium 75 mg PO BID 12/09/18 12/09/18 hydrochlorothiazide 25 mg PO DAILY 12/09/18 12/09/18 levothyroxine 100 mcg PO DAILY 12/09/18 12/09/18 losartan 100 mg PO DAILY 12/09/18 12/09/18 metoprolol tartrate 100 mg PO DAILY 12/09/18 12/09/18 potassium chloride 20 meq PO DAILY 12/09/18 12/09/18 rosuvastatin 40 mg PO DAILY 12/09/18 12/09/18 venlafaxine 150 mg PO DAILY 12/09/18 12/09/18 Previous Rx's Medication Instructions Recorded methocarbamol [Robaxin] 500 mg PO TID PRN #20 tab 12/09/18 Allergies Allergy/AdvReac Type Severity Reaction Status Date / Time No Known Drug Allergies Allergy Verified 12/09/18 11:35 Review of Systems <CATINA Mary - Last Filed: 02/14/20 20:55> Review of Systems Narrative: REVIEW OF SYSTEMS: GENERAL: Denies fever or chills. Reports generalized fatigue, see HPI. HENT: No head trauma, hearing loss or sore throat. EYES: No loss of vision, double vision, eye pain, or irritation. CARDIOVASCULAR: No chest pain or syncope. RESPIRATORY: No shortness of breath or cough. GASTROINTESTINAL: No nausea, vomiting, diarrhea, or constipation. GENITOURINARY: No flank pain or dysuria. MUSCULOSKELETAL: No pain, weakness, or deformities. INTEGUMENTARY: No rash, lesions, or pruritus. NEURO: No numbness or tingling. Reports not feeling like herself, see HPI. PSYCH: No behavior or mood changes. Patient History <CATINA Mary - Last Filed: 02/14/20 20:55> Medical History Aneurysm (Acute) Surgical History No pertinent past surgical history (Acute) Social History lives independently: Yes Smoking Status: Former smoker Smoking Status: Former smoker alcohol intake frequency: 0-2 drinks per day Substance Use Type: does not use Exam <CATINA Mary - Last Filed: 02/14/20 20:55> Initial Vital Signs Initial Vital Signs: Vital Signs Temperature 98.4 F 02/14/20 14:15 Pulse Rate 86 02/14/20 14:15 Respiratory Rate 17 02/14/20 14:15 Blood Pressure 138/64 02/14/20 14:15 Pulse Oximetry 96 02/14/20 14:15 PHYSICAL EXAMINATION: GENERAL: Well groomed, alert, and cooperative. Answers questions promptly and appropriately. Vital signs noted. HENT: Normocephalic. Ear canals patent. Oral mucosa is pink and moist. EYES: PERRLA, EOMIs, conjunctiva pink, sclera white, no periorbital swelling. NECK: Full ROM, no midline or spinal tenderness. CARDIOVASCULAR: S1 and S2 sounds normal. Regular rate and rhythm, no murmurs, clicks, or bruits. RESPIRATORY: Normal respiratory rate, trachea midline, airway patent. No stridor, nasal flaring or accessory muscle use. Lungs are clear in all nelson without wheeze, rhonchi, or crackles. MUSCULOSKELETAL: Normal gait and coordination. Equal tone and mass bilaterally. Equal strength bilaterally to upper and lower extremities. No spinal tenderness. EXTREMITIES: CMS intact. Moves all extremities. SKIN: Warm, dry, soft, appropriate color for ethnicity. No lesions, rashes, or wounds to visualized areas. NEURO: Alert and Oriented X 3. GCS: 15. Good coordination. No ataxia, or sensory deficits, or cognitive issues. Cranial Nerves: II: Visual nelson grossly intact. III & IV & : EOMIs V: Able to open and close jaw. VII: Facial movements symetrical. Able to close eyelids tightly. VIII: Hearing grossly intact, adequate balance. X: Uvula pronation intact. XI: Patient is able to shrug shoulders. XII: Patient is able to stick out tongue and move it side to side. PSYCH: Appropriate affect and mood. <Hao Lopez MD - Last Filed: 02/15/20 18:07> Initial Vital Signs Initial Vital Signs: Vital Signs Temperature 98.4 F 02/14/20 14:15 Pulse Rate 86 02/14/20 14:15 Respiratory Rate 17 02/14/20 14:15 Blood Pressure 138/64 02/14/20 14:15 Pulse Oximetry 96 02/14/20 14:15 Scores <CATINA Mary - Last Filed: 02/14/20 20:55> NIH Stroke Scale Level of Conciousness: Alert, keenly responsive Ask month/age: Answers both questions correctly. Open/close eyes, close hand: Performs both tasks correctly Best gaze horizontal: Normal Visual nelson: No visual loss Facial palsy: Normal symetrical movement Left arm drift: No drift for full 10 sec Right arm drift: No drift for full 10 sec Left leg drift: No drift for full 5 sec Right leg drift: No drift for full 5 sec Limb ataxia: Absent Sensory on face/arms/legs: Normal, no sensory loss Best language: No aphasia, normal Dysarthria: Normal Extinction or inattention: No abnormality Total NIH Stroke scale score: 0 Course <CATINA Mary - Last Filed: 02/14/20 20:55> Course Course Narrative: 1659: Patient updated on plan of care, updated on CT scan re sults and waiting to speak to neurosurgeon. 1741: I spoke with neurosurgeon, from [facility] discussed patient's symptoms and test results, accepts for transfer. 1756: Patient updated on plan of care, will be transferred to [facility], patient consents to transfer. 2045: Patient remains hemodynamically stable, no neurological deficits. Awake and alert, interacting with family, following commands. Serial NIH scores of 0. ALS transport in route. Orders Ordered: Discontinued Medications Sodium Chloride (Normal Saline 0.9%) 1,000 mls @ 150 mls/hr IV CONT ORIANA Last Admin: 02/14/20 21:02 Dose: 150 mls/hr Documented by: ALEX Holly Consultation #1: Patient staffed with Dr. Lopez discussed symptoms, history, test, test results, and plan of care as well as transfer. Vital Signs Vital signs: Vital Signs - 8 hr 02/14/20 14:15 02/14/20 16:14 02/14/20 16:20 Temperature 98.4 F Pulse Rate 86 91 H 85 Respiratory Rate 17 31 H Blood Pressure 138/64 141/67 H Pulse Oximetry 96 96 95 02/14/20 16:30 02/14/20 17:00 02/14/20 17:30 Temperature Pulse Rate 87 91 H 86 Respiratory Rate 31 H 42 H 26 H Blood Pressure Pulse Oximetry 93 95 93 02/14/20 18:00 02/14/20 18:30 02/14/20 19:00 Temperature Pulse Rate 105 H 91 H 87 Respiratory Rate 39 H 26 H 32 H Blood Pressure Pulse Oximetry 98 96 94 02/14/20 19:27 02/14/20 19:30 02/14/20 20:00 Temperature Pulse Rate 84 85 86 Respiratory Rate 28 H 20 36 H Blood Pressure 157/79 H 166/79 H Pulse Oximetry 95 96 96 02/14/20 20:21 02/14/20 20:30 Temperature Pulse Rate 88 84 Respiratory Rate 23 28 H Blood Pressure 160/87 H Pulse Oximetry 93 <Hao Lopez MD - Last Filed: 02/15/20 18:07> Orders Ordered: Discontinued Medications Sodium Chloride (Normal Saline 0.9%) 1,000 mls @ 150 mls/hr IV CONT ORIANA Last Admin: 02/14/20 21:02 Dose: 150 mls/hr Documented by: ALEX Vital Signs Vital signs: Vital Signs - 8 hr 02/14/20 14:15 02/14/20 16:14 02/14/20 16:20 Temperature 98.4 F Pulse Rate 86 91 H 85 Respiratory Rate 17 31 H Blood Pressure 138/64 141/67 H Pulse Oximetry 96 96 95 02/14/20 16:30 02/14/20 17:00 02/14/20 17:30 Temperature Pulse Rate 87 91 H 86 Respiratory Rate 31 H 42 H 26 H Blood Pressure Pulse Oximetry 93 95 93 02/14/20 18:00 02/14/20 18:30 02/14/20 19:00 Temperature Pulse Rate 105 H 91 H 87 Respiratory Rate 39 H 26 H 32 H Blood Pressure Pulse Oximetry 98 96 94 02/14/20 19:27 02/14/20 19:30 02/14/20 20:00 Temperature Pulse Rate 84 85 86 Respiratory Rate 28 H 20 36 H Blood Pressure 157/79 H 166/79 H Pulse Oximetry 95 96 96 02/14/20 20:21 02/14/20 20:30 Temperature Pulse Rate 88 84 Respiratory Rate 23 28 H Blood Pressure 160/87 H Pulse Oximetry 93 MDM - Weakness <CATINA Mary - Last Filed: 02/14/20 20:55> Medical Records Attestation: I reviewed the patient's medical records. Lab Data Attestation: I reviewed the patient's lab results. Result diagrams: 02/14/20 15:17 02/14/20 15:17 Labs: Lab Results 02/14/20 02/14/20 02/14/20 Range/Units 15:17 15:17 15:17 WBC 7.2 (4.5-11.0) X10^3/uL RBC 4.34 (4.0-5.2) X10^6/uL Hgb 13.0 (12.0-16.0) g/dL Hct 37.3 (36-46) % MCV 86.0 (80-100) fL MCH 30.0 (26-34) PG MCHC 34.9 (30-36) % RDW 14.0 (11.6-14.8) % Plt Count 312 (150-400) X10^3/uL Neut % (Auto) 39.5 L (50-75) % Lymph % (Auto) 45.3 H (25-40) % [place] % (Auto) 12.1 (3-14) % Eos % (Auto) 1.9 L (2-4) % Baso % (Auto) 1.2 (0-2) % Neut # (Auto) 2900 (4802-6739) /uL Lymph # (Auto) 3300 (3867-6244) /uL [place] # (Auto) 900 (0-900) /uL Eos # (Auto) 100 (0-450) /uL Baso # (Auto) 100 (0-100) /uL PT 11.9 (10.1-12.7) SECONDS INR 1.0 (0.9-1.3) APTT 27 (26.4-36.2) SECONDS Sodium 140 (137-145) mmol/L Potassium 3.2 L (3.4-5.1) mmol/L Chloride 103 (98-107) mmol/L Carbon Dioxide 30 (22-32) mmol/L BUN 24 H (7-17) mg/dL Creatinine 0.96 (0.52-1.04) mg/dL Estimated GFR 59.7 L (>60) mL/min BUN/Creatinine Ratio 25.0 H (6-22) Glucose 109 H (70-100) mg/dL Calcium 8.9 (8.4-10.2) mg/dL Total Creatine Kinase 641 H (30-135) U/L CK-MB (CK-2) 9.05 H (<2.37) ng/mL CK-MB (CK-2) Rel Index 1.4 L (1.5-5.0) % Troponin I < 0.012 (0.01-0.034) ng/mL U Opiates 300ng/mL cut (Negative) Ur Oxycodone Screen (Negative) Urine Methadone Screen (Negative) Ur Barbiturates Screen (Negative) U Tricyclic Antidepress (Negative) Ur Phencyclidine Scrn (Negative) Ur Amphetamines Screen (Negative) U Methamphetamines Scrn (Negative) Ur MDMA Scrn (Ecstasy) (Negative) U Benzodiazepines Scrn (Negative) Urine Cocaine Screen (Negative) U Marijuana (THC) Screen (Negative) COVID-19 PCR (Negative) 02/14/20 02/14/20 Range/Units 16:21 19:20 WBC (4.5-11.0) X10^3/uL RBC (4.0-5.2) X10^6/uL Hgb (12.0-16.0) g/dL Hct (36-46) % MCV (80-100) fL MCH (26-34) PG MCHC (30-36) % RDW (11.6-14.8) % Plt Count (150-400) X10^3/uL Neut % (Auto) (50-75) % Lymph % (Auto) (25-40) % [place] % (Auto) (3-14) % Eos % (Auto) (2-4) % Baso % (Auto) (0-2) % Neut # (Auto) (6036-8998) /uL Lymph # (Auto) (0945-2017) /uL [place] # (Auto) (0-900) /uL Eos # (Auto) (0-450) /uL Baso # (Auto) (0-100) /uL PT (10.1-12.7) SECONDS INR (0.9-1.3) APTT (26.4-36.2) SECONDS Sodium (137-145) mmol/L Potassium (3.4-5.1) mmol/L Chloride (98-107) mmol/L Carbon Dioxide (22-32) mmol/L BUN (7-17) mg/dL Creatinine (0.52-1.04) mg/dL Estimated GFR (>60) mL/min BUN/Creatinine Ratio (6-22) Glucose (70-100) mg/dL Calcium (8.4-10.2) mg/dL Total Creatine Kinase (30-135) U/L CK-MB (CK-2) (<2.37) ng/mL CK-MB (CK-2) Rel Index (1.5-5.0) % Troponin I (0.01-0.034) ng/mL U Opiates 300ng/mL cut Negative (Negative) Ur Oxycodone Screen Negative (Negative) Urine Methadone Screen Negative (Negative) Ur Barbiturates Screen Negative (Negative) U Tricyclic Antidepress Negative (Negative) Ur Phencyclidine Scrn Negative (Negative) Ur Amphetamines Screen Negative (Negative) U Methamphetamines Scrn Negative (Negative) Ur MDMA Scrn (Ecstasy) Negative (Negative) U Benzodiazepines Scrn Negative (Negative) Urine Cocaine Screen Negative (Negative) U Marijuana (THC) Screen Negative (Negative) COVID-19 PCR Negative (Negative) Urine Dip Bedside Urine Glucose Negative Bedside Urine Bilirubin - Negative Bedside Urine Ketone - Negative Urine Specific [place] 1.015 Bedside Urine Occult Blood - Negative Bedside Urine pH 6.0 Bedside Urine Urobilinogen +/- 1mg Bedside Urine Nitrite - Negative Bedside Urine Leukocytes - Negative Esterase Imaging Data CT scan - head: Radiologist Impression: [address] [address] [address] Scan Report Signed Patient: Haresh Malloy#: [id number] : 2Acct:[id number] Age/Sex: 59 / FDate of Service: 02/14/20 Loc: ED Accession Number: [id number] Procedure: CT head/brain wo con Ordering Provider: Phuong Mcdowell PROCEDURE: CT HEAD/BRAIN WO CON INDICATIONS: slow speech TECHNIQUE: Noncontrast 4.5 mm thick angled axial sections acquired from the foramen magnum to the vertex, with coronal and sagittal reformats. For radiation dose reduction, the following was used: automated exposure control, adjustment of mA and/or kV according to patient size. COMPARISON: [facility], , MR HEAD/BRAIN WO/W CON, 09/14/2019, 13:01. FINDINGS: Image quality: Excellent. CSF spaces: Basal cisterns are patent. No extra-axial fluid collections. Ventricles are normal in size and shape. Brain: There are old infarcts with encephalomalacia involving the right frontal lobe, right parietal lobe and left frontal lobe. There is mild cerebral volume loss. There mild periventricular white matter chronic small vessel ischemic changes. No midline shift. No intracranial masses or hemorrhage. Gonzalez-white matter interface is normal. Skull and face: Right frontal parietal craniotomy. Sinuses: Visualized sinuses and mastoids are clear. IMPRESSION: 1. No acute intracranial abnormalities. 2. 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 Dictated by: Kosta Nichols M.D. on 02/14/2020 at 15:00 Approved by: Kosta Nichols M.D. on 02/14/2020 at 15:08 CTA: Radiologist Impression: [address] [address] [address] Scan Report Signed Patient: Libby Malloy#: [id number] : 2Acct:[id number] Age/Sex: 59 / FDate of Service: 02/14/20 Loc: ED Accession Number: [id number] Procedure: CT angio head and neck Ordering Provider: Phuong Mcdowell PROCEDURE: CT ANGIO HEAD AND NECK INDICATIONS: weakness, intermittent slurred speech, history of aneurysm TECHNIQUE: Noncontrast images were performed earlier in the day and not repeated. After the administration of intravenous contrast, 1 mm thick sections acquired from the aortic arch through the [place] of [place]. Post-contrast 4.5 mm thick sections then re- acquired from the foramen magnum to the vertex. 3-dimensional ttrmyjg-pqamsusjh-nhbfxzqghm (MIP) and/or volume rendering reformats were acquired of the central intracranial vasculature and neck separately. COMPARISON: [facility], MR, MR HEAD/BRAIN WO/W CON, 09/14/2019, 13:01. [facility], CT, CT HEAD/BRAIN WO CON, 02/14/2020, 14:46. FINDINGS: Image quality: Excellent. BRAIN: CSF spaces: Stable asymmetry can be seen in the lateral ventricles, with the anterior aspect of the left lateral ventricle larger than the right. Basal cisterns are patent. No extra-axial fluid collections. Brain: Abnormal enhancement can be seen involving the region of the left cavernous sinus No midline shift. No intracranial bleeds. Gonzalez-white matter interface appears intact. Remote infarcts are again seen involving the right frontal lobe, the left fronta l lobe, and the right parietal lobe. Skull and face: Right-sided and frontal craniotomy changes are seen. Calvarium and facial bones appear intact, without suspicious lesions. Orbits appear normal. Sinuses: Sinuses and mastoids are clear. 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 Adjacent to the aneurysm clip, there is a wide necked aneurysm seen just superior to the aneurysm clip self, measuring 7 mm. Abnormally prominent vessels can be seen within the right cavernous sinus with a connection seen to the basilar artery, as on series 7, image 88 and on series 20, image 90. No flow is seen within the distal left internal carotid artery. The flow within the paired anterior cerebral arteries is normal and symmetric. The flow within the middle cerebral arteries is normal and symmetric. The anterior communicating artery is seen. Posterior circulation: Visualized portions of the vertebral arteries demonstrate normal caliber, and join to form a normal appearing basilar artery. Flow within the posterior cerebral arteries is normal and symmetric. No aneurysms are seen. NECK CT ANGIOGRAPHY: Carotid system: The great vessels demonstrate a conventional anatomy as they arise from the aortic arch. Atherosclerotic calcification of the aortic arch is noted. The origins of the common carotid arteries appear patent. The common carotid arteries demonstrate normal caliber and courses. The bifurcation regions demonstrate atherosclerotic calcification and irregularity. No hemodynamically significant stenosis can be seen. No flow is seen within the distal aspect of the left internal carotid artery. Th ere is compensatory hypertrophy seen involving the right internal carotid artery. The right internal carotid artery is tortuous. Posterior circulation: The origins of the vertebral arteries both appear widely patent. The more superior extracranial portions of both vertebral arteries also demons trate normal courses and calibers. They join to form a normal appearing basilar artery. Soft tissues: Visualized neck soft tissues demonstrate no suspicious abnormalities. Prior left hemithyroidectomy change can be seen. Bones: No suspicious bony lesions. Visualized cervical spine appears normally aligned. Moderate cervical spine degenerative changes are seen. IMPRESSION: Postoperative changes are seen on the right, with a right carotid terminus aneurysm clip. Adjacent to the aneurysm clip, there is an apparent 7 mm aneurysm seen. Abnormal vessels can be seen involving the right cavernous sinus, with a connection between these anomalous vessels and the basilar artery. 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 Please correlate with known patient history and any prior outside imaging. This may be related to a persistent acoustic artery. Abnormal enhancement can be seen involving the left cavernous sinus. 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 This abnormal enhancement is attributed to such. No flow seen within the distal aspect of the left internal carotid artery. Please correlate with known history, including potential postoperative change. Incidental note is made of: Cervical spine degenerative change Prior left hemithyroidectomy Any quantitative measurements of stenosis were performed using NASCET criteria. Dictated by: Uemr Trejo M.D. on 02/14/2020 at 15:14 Approved by: Umer Trejo M.D. on 02/14/2020 at 15:27 Chest x-ray: Radiologist Impression: [address] [address] XRay Report Signed Patient: Haresh Malloy#: [id number] : 2Acct:[id number] Age/Sex: 59 / FDate of Service: 02/14/20 Loc: ED Accession Number: [id number] Procedure: XR chest 1V Ordering Provider: Phuong Mcdowell PROCEDURE: XR CHEST 1V INDICATIONS: weakness TECHNIQUE: One view of the chest was acquired. COMPARISON: None. FINDINGS: Surgical changes and devices: Left axillary and upper abdominal clips. Right hemithorax clips. Lungs and pleura: Prominent pulmonary vasculature markings bilaterally. Mild opacity at the right medial lung base. No pleural effusions or pneumothorax. Mediastinum: Mediastinal contours appear normal. Heart size is normal. Bones and chest wall: No suspicious bony lesions. Overlying soft tissues appear unremarkable. IMPRESSION: Mild opacity at the right medial lung base. This could be due to pneumonia, atelectasis, or aspiration. Pulmonary vasculature engorgement without overt fluid overload/CHF. Dictated by: Jimmie Lee M.D. on 02/14/2020 at 14:57 Approved by: Jimmie Lee M.D. on 02/14/2020 at 14:59 ECG Data Interpretation: 1430: Sinus rhythm, rate 84, CO interval 156, QTC 482. No ST elevation or ST depression. T-wave inversion noted in V1. No ectopy. EKG also viewed by Dr. Lopez per protocol. [facility] Narrative Medical decision making narrative: 59-year-old female with a history of prior aneurysm and meningiomas, presents emergency department for vague neurological symptoms. Upon presentation, no focal neurological deficit noted, NIH score of 0, cranial nerves intact. Given history and reported complaints, CT head, and CT angio head and neck were ordered. CT shows 7 mm aneurysm. Neuro surgery at [facility] was consulted and Dr. Lao accepts for transfer. We discussed that this may are may not be the cause of previous symptoms. However, less concern for other etiology such as acute infection given normal white blood cell count, afebrile, non tachycardic. Chest x-ray shows some consolidation but may be due to atelectasis, patient does not have a physical presentation of pneumonia. Covid-19 test negative. EKG non-remarkable, troponin negative, less likely cardiac or respiratory etiology. Patient consented for transfer, remained awake and alert prior to transfer. <Hao Lopez MD - Last Filed: 02/15/20 18:07> Lab Data Labs: Lab Results 02/14/20 02/14/20 02/14/20 Range/Units 15:17 15:17 15:17 WBC 7.2 (4.5-11.0) X10^3/uL RBC 4.34 (4.0-5.2) X10^6/uL Hgb 13.0 (12.0-16.0) g/dL Hct 37.3 (36-46) % MCV 86.0 (80-100) fL MCH 30.0 (26-34) PG MCHC 34.9 (30-36) % RDW 14.0 (11.6-14.8) % Plt Count 312 (150-400) X10^3/uL Neut % (Auto) 39.5 L (50-75) % Lymph % (Auto) 45.3 H (25-40) % [place] % (Auto) 12.1 (3-14) % Eos % (Auto) 1.9 L (2-4) % Baso % (Auto) 1.2 (0-2) % Neut # (Auto) 2900 (6688-4180) /uL Lymph # (Auto) 3300 (1685-8910) /uL [place] # (Auto) 900 (0-900) /uL Eos # (Auto) 100 (0-450) /uL Baso # (Auto) 100 (0-100) /uL PT 11.9 (10.1-12.7) SECONDS INR 1.0 (0.9-1.3) APTT 27 (26.4-36.2) SECONDS Sodium 140 (137-145) mmol/L Potassium 3.2 L (3.4-5.1) mmol/L Chloride 103 (98-107) mmol/L Carbon Dioxide 30 (22-32) mmol/L BUN 24 H (7-17) mg/dL Creatinine 0.96 (0.52-1.04) mg/dL Estimated GFR 59.7 L (>60) mL/min BUN/Creatinine Ratio 25.0 H (6-22) Glucose 109 H (70-100) mg/dL Calcium 8.9 (8.4-10.2) mg/dL Total Creatine Kinase 641 H (30-135) U/L CK-MB (CK-2) 9.05 H (<2.37) ng/mL CK-MB (CK-2) Rel Index 1.4 L (1.5-5.0) % Troponin I < 0.012 (0.01-0.034) ng/mL U Opiates 300ng/mL cut (Negative) Ur Oxycodone Screen (Negative) Urine Methadone Screen (Negative) Ur Barbiturates Screen (Negative) U Tricyclic Antidepress (Negative) Ur Phencyclidine Scrn (Negative) Ur Amphetamines Screen (Negative) U Methamphetamines Scrn (Negative) Ur MDMA Scrn (Ecstasy) (Negative) U Benzodiazepines Scrn (Negative) Urine Cocaine Screen (Negative) U Marijuana (THC) Screen (Negative) COVID-19 PCR (Negative) 02/14/20 02/14/20 Range/Units 16:21 19:20 WBC (4.5-11.0) X10^3/uL RBC (4.0-5.2) X10^6/uL Hgb (12.0-16.0) g/dL Hct (36-46) % MCV (80-100) fL MCH (26-34) PG MCHC (30-36) % RDW (11.6-14.8) % Plt Count (150-400) X10^3/uL Neut % (Auto) (50-75) % Lymph % (Auto) (25-40) % [place] % (Auto) (3-14) % Eos % (Auto) (2-4) % Baso % (Auto) (0-2) % Neut # (Auto) (0537-5959) /uL Lymph # (Auto) (0341-5229) /uL [place] # (Auto) (0-900) /uL Eos # (Auto) (0-450) /uL Baso # (Auto) (0-100) /uL PT (10.1-12.7) SECONDS INR (0.9-1.3) APTT (26.4-36.2) SECONDS Sodium (137-145) mmol/L Potassium (3.4-5.1) mmol/L Chloride (98-107) mmol/L Carbon Dioxide (22-32) mmol/L BUN (7-17) mg/dL Creatinine (0.52-1.04) mg/dL Estimated GFR (>60) mL/min BUN/Creatinine Ratio (6-22) Glucose (70-100) mg/dL Calcium (8.4-10.2) mg/dL Total Creatine Kinase (30-135) U/L CK-MB (CK-2) (<2.37) ng/mL CK-MB (CK-2) Rel Index (1.5-5.0) % Troponin I (0.01-0.034) ng/mL U Opiates 300ng/mL cut Negative (Negative) Ur Oxycodone Screen Negative (Negative) Urine Methadone Screen Negative (Negative) Ur Barbiturates Screen Negative (Negative) U Tricyclic Antidepress Negative (Negative) Ur Phencyclidine Scrn Negative (Negative) Ur Amphetamines Screen Negative (Negative) U Methamphetamines Scrn Negative (Negative) Ur MDMA Scrn (Ecstasy) Negative (Negative) U Benzodiazepines Scrn Negative (Negative) Urine Cocaine Screen Negative (Negative) U Marijuana (THC) Screen Negative (Negative) COVID-19 PCR Negative (Negative) Urine Dip Bedside Urine Glucose Negative Bedside Urine Bilirubin - Negative Bedside Urine Ketone - Negative Urine Specific [place] 1.015 Bedside Urine Occult Blood - Negative Bedside Urine pH 6.0 Bedside Urine Urobilinogen +/- 1mg Bedside Urine Nitrite - Negative Bedside Urine Leukocytes - Negative Esterase Discharge Plan Departure Patient Disposition: [facility] Clinical Impression: Aneurysm Discharge Date/Time: 02/14/20 22:12 Prescriptions: No Action metoprolol tartrate 100 mg tablet 100 mg PO DAILY RF: 0 venlafaxine 150 mg capsule,extended release 24hr 150 mg PO DAILY RF: 0 levothyroxine 100 mcg tablet 100 mcg PO DAILY RF: 0 amlodipine 10 mg tablet 10 mg PO DAILY RF: 0 diclofenac sodium 75 mg tablet,delayed release (DR/EC) 75 mg PO BID RF: 0 hydrochlorothiazide 25 mg tablet 25 mg PO DAILY RF: 0 losartan 100 mg tablet 100 mg PO DAILY RF: 0 rosuvastatin 40 mg tablet 40 mg PO DAILY RF: 0 potassium chloride 20 mEq tablet extended release 20 meq PO DAILY RF: 0 methocarbamol [Robaxin] 500 mg tablet 500 mg PO TID PRN (Reason: muscle pain) Qty: 20 RF: 0 Referrals: No Hernandez MD [Primary Care Provider] - <Hao Lopez MD - Last Filed: 02/15/20 18:07> Cosign ED Attending Cosignature Attestation: I was immediately available in the department for consultation. This documentation has been reviewed and I agree with assessment and plan. Supervised by Hao Lopez MD
[2020-02-14 15:26] LABS: Add Manual Diff / Slide Review NO; Basophils Absolute Auto 100 /uL (0-100); Basophils Percent Auto 1.2 % (0-2); Eosinophils Absolute Auto 100 /uL (0-450); Eosinophils Percent Auto 1.9 % (2-4); Hematocrit 37.3 % (36-46); Lymphocytes Absolute Auto 3300 /uL (1100-4500); Lymphocytes Percent Auto 45.3 % (25-40); Mean Corpuscular HGB Conc 34.9 % (30-36); Monocytes Absolute Auto 900 /uL (0-900); Monocytes Percent Auto 12.1 % (3-14); Neutrophils Absolute Auto 2900 /uL (1500-7000); Neutrophils Percent Auto 39.5 % (50-75); Platelet Count 312 X10^3/uL (150-400); Red Blood Cell Count 4.34 X10^6/uL (4.0-5.2); White Blood Cell Count 7.2 X10^3/uL (4.5-11.0)
[2020-02-14 15:36] LABS: Prothrombin Time 11.9 SECONDS (10.1-12.7)
[2020-02-14 15:38] LABS: PTT Partial Thromboplastin Tim 27 SECONDS (26.4-36.2)
[2020-02-14 15:41] LABS: Blood Urea Nitrogen 24 mg/dL (7-17); Calcium 8.9 mg/dL (8.4-10.2); Carbon Dioxide 30 mmol/L (22-32); Chloride 103 mmol/L (98-107); Creatine Kinase 641 U/L (30-135); Estimated Glomerular Filt Rate 59.7 mL/min (>60); Glucose 109 mg/dL (70-100); HEMOLYSIS 20 (0-50); Potassium 3.2 mmol/L (3.4-5.1); Sodium 140 mmol/L (137-145)
[2020-02-14 15:54] LABS: Troponin I < 0.012 ng/mL (0.01-0.034)
[2020-02-14 15:56] LABS: CKMB % Relative Index 1.4 % (1.5-5.0); Creatine Kinase MB 9.05 ng/mL (<2.37)
[2020-02-14 17:09] LABS: COVID19 -Nasal RAPID Negative (Negative)
--- NOTE | 2020-02-14 19:24 | PC.NURSE ---
Upon patient arrival to room 4, patient friend Angelia was allowed back to patient room. At that time visitor policy explained to Angelia and Angelia verbalized understanding of the policy. At some point Angelia switched out with a different male visitor and attempts were made to have several people attend a blessing in the patients room prior to her transfer. This nurse again explained to the male visitor in the room the policy which has now been broken is in place to protect the patient and everyone the patient comes in contact with throughout her care. Another person at the red phone who stated he was a dentist also stated he completely understood the policy and how it places risk on the patient and everyone the patient comes in contact with throughout her course of care when she leaves this facility. Again an explanation was given to the patient and she thanked staff for the explanation and verbalized complete understanding of the visitor policy and thanked this nurse for the efforts being take to keep her safe.
[2020-02-14 19:43] LABS: UR Morphine/Opiate cutoff 300 Negative (Negative); Ur Creatinine Normal (Normal); Ur Specific Gravity Normal (Normal); Urine Amphetamines Negative (Negative); Urine Barbiturates Negative (Negative); Urine Benzodiazepines Negative (Negative); Urine Cocaine Negative (Negative); Urine MDMA Negative (Negative); Urine Methadone Negative (Negative); Urine Methamphetamines Negative (Negative); Urine Oxycodone Negative (Negative); Urine Phencyclidine Negative (Negative); Urine Tetrahydrocannabinol Negative (Negative); Urine Tricyclic Antidepressant Negative (Negative); Urine pH Normal (Normal)
[2020-02-14] MEDS: SODIUM CHLORIDE 0.9% 1,000 ML 150 ML IV (21:02)
--- NOTE | 2020-03-25 05:55 | PC.NURSE ---
The IV fluid bolus of NS was stopped on 02/13 at 2156 with 1000ml infused
== END 2020-02-14 22:12 | disposition short-term general hospital (02) ==
PROVIDERS: Emergency Provider Nurse Practitioner; PCP Internal Medicine
DX: I72.9 Aneurysm of unspecified site (principal); I10 Essential (primary) hypertension; R47.81 Slurred speech
CPT/HCPCS: 36415; 70450; 70496; 70498; 71045; 80048; 80305; 81003; 82550; 82553; 84484; 85025; 85610; 85730; 87635; 93005; 96360; 99285; Q9967

== ENCOUNTER → 2021-01-25 09:43 | Outpatient (CLI) | payer OTHER, MEDICAID, SELFPAY ==
--- NOTE | 2021-01-25 | DI.ECHO.S_ITS ---
[facility]---------+ [facility] +---------+ : : [address] : [address] : : : : [id number] : : : : Phone: [phone]+ Echocardiogram Report + + :Name: SHLOMO MENDES Study Date: 01/25/2021 Height: 69 in : :[facility] ReadingLocation: Weight: 240 lb : : Gender: Female BSA: 2.2 m2 : :: 1960 Age: 60 yrs BP: 171/87 mmHg: :Reason For Study: Aortic valve stenosis : :Ordering Physician: Itzel : :Clarice Little Performed By: Trey Gonzales : :Referring: ITZEL LITTLE : + + Interpretation Summary 1) Normal left ventricular size, wall motion, and systolic function (EF 60- 65%). 2) Normal right ventricular size and function. 3) Aortic valve is mildly calcific with moderately reduced excursion. Bicuspid valve can't be excluded. 4) There is moderate aortic stenosis (valve area 1.4cm2, mean gradient 24mmHg). Mild aortic regurgitation present. 5) Mitral valve is calcific with mild to moderate mitral stenosis (mean transmitral inflow gradient of 8mmHg, heart rate in the 80s). 6) Significant hypertension present during the study (BP 171/87mmHg). 7) Compared to the Echo done 02/03/2020, no significant change. Procedure: A two-dimensional transthoracic echocardiogram with color flow and Doppler was performed. The study quality was technically adequate. Comparison is made with the echocardiogram of 02/03/2020. Left Ventricle: The left ventricle is normal in size. There is mild concentric left ventricular hypertrophy. Left ventricular systolic function is normal. The ejection fraction is estimated to be 60-65%. There are no focal wall motion abnormalities. Diastolic parameters suggest a pseudonormalization pattern, consistent with probable elevated filling pressures. Right Ventricle: The right ventricle is normal in size and function. Atria: The left atrium is moderately dilated. Right atrial size is normal. There is no Doppler evidence for an interatrial shunt. Mitral Valve: There is moderate mitral annular calcification. There is mild to moderate mitral stenosis. The mitral valve mean gradient is 8 mmHg. MVA (VTI): 1.8 cm2. There is mild mitral regurgitation. Aortic Valve: The aortic valve is moderately calcified. There is moderate aortic stenosis. The aortic valve mean gradient is 24 mmHg. The calculated aortic valve area is 1.4 cm2. There is mild aortic regurgitation. Tricuspid Valve: The tricuspid valve is normal in structure and function. There is mild tricuspid regurgitation. Pulmonary artery pressures cannot be estimated because of the lack of a measurable TR jet velocity but the IVC suggests a CVP of around 3 mmHg. Pulmonic Valve: The pulmonic valve is normal in structure and function. There is mild pulmonic regurgitation. Great Vessels: The aortic root is normal size. The dimensions of the ascending aorta are normal. The IVC is of normal diameter and collapses greater than 50% with a sniff. This suggests a low right atrial pressure of 3 mm Hg. Pericardium/ Pleura There is no pericardial effusion. There is no pleural effusion. MMode/2D Measurements & Calculations LVIDd: 4.5 cm LVOT diam: 2.1 cm LVIDs: 2.9 cm Ao root diam: 3.1 cm FS: 35.6 % asc Aorta Diam: 3.2 cm IVSd: 1.4 cm LVPWd: 1.4 cm LV resendez. diameter/BSA (cm/m^2): 2.0 LV sys. diameter/BSA (cm/m^2): 1.3 LA dimension: 4.3 cm RA long axis: 5.4 cm LA A2 area: 27.5 cm2 LA A4 area: 23.7 cm2 LA length (vol): 6.8 cm LA vol: 81.4 ml LA vol index: 36.4 ml/m2 TAPSE_phl: 2.8 cm Doppler Measurements & Calculations Ao V2 max: 326.0 cm/sec LVOT Max Christofer: 123.0 cm/sec Ao V2 mean: 233.0 cm/sec LV V1 max P.1 mmHg Ao max P.0 mmHg LV V1 VTI: 28.3 cm Ao mean P.0 mmHg RAJWINDER(I,D): 1.4 cm2 Ao V2 VTI: 70.5 cm RAJWINDER(V,D): 1.3 cm2 sev ratio: 0.40 RAJWINDER indexed to BSA (cm^2/m^2): 0.62 MV E max christofer: 202.0 cm/sec PA V2 max: 106.0 cm/sec MV A max christofer: 159.0 cm/sec PA V2 mean: 77.0 cm/sec MV E/A: 1.3 PA mean P.0 mmHg Med Peak E' Christofer: 5.0 cm/sec E/E' med: 40.2 Lat Peak E' Christofer: 4.0 cm/sec E/E' lat: 51.0 E/e' average: 45.6 MV dec time: 0.38 sec MV P1/2t: 112.3 msec MVA(VTI): 1.8 cm2 MV V2 mean: 136.0 cm/sec MV P1/2t max christofer: 203.0 cm/sec MV mean P.0 mmHg MVA(P1/2t): 2.0 cm2 MV V2 VTI: 53.4 cm SV(LVOT): 97.8 ml AV VR_phl: 0.38 RAJWINDER(VTI)/BSA_phl: 0.62 MV P1/2t-pr_phl: 110.9 msec Reading Physician:12:44 PM
== END ==
PROVIDERS: PCP Internal Medicine; Referring Provider Internal Medicine Cardiovascular Disease; Visit Provider Internal Medicine Cardiovascular Disease
DX: I35.0 Nonrheumatic aortic (valve) stenosis (principal)
CPT/HCPCS: 93306

== ENCOUNTER 2021-08-29 18:30 | Emergency (ER) | payer OTHER, MEDICAID, SELFPAY ==
[2021-08-29 18:57] VITALS: BP 140/70; PULSE 96; RESP 20; TEMP 36.6; O2SAT 96; BMI 35.4
[2021-08-29 21:03] LABS: Appearance Urine UA Slightly Cloudy; Color Urine UA Yellow; pH Urine UA 5 (4.5-8.0)
[2021-08-29 21:04] LABS: Glucose Urine UA NEGATIVE (Negative); Protein Urine UA 2+ (Negative)
[2021-08-29 21:05] LABS: Bilirubin Urine UA NEGATIVE (NEGATIVE); Ketones Urine UA NEGATIVE (NEGATIVE); Nitrite Urine UA POSITIVE (Negative); Occult Blood Urine UA 3+ (Negative)
[2021-08-29 21:06] LABS: Leukocyte Esterase Urine UA 2+ (NEGATIVE); Urobilinogen Urine UA Normal E.U./dL (0.2)
[2021-08-29 21:07] LABS: Culture Indicated Urine Specimen Cultured
--- NOTE | 2021-08-29 21:44 | ED_ITS ---
HPI - Female Genitourinary General Chief complaint: Urogenital-Female Stated complaint: thinks bladder infection Time Seen by Provider: 08/29/21 21:35 Source: patient Mode of arrival: Ambulatory History of Present Illness HPI Narrative: Patient is a 60-year-old female with history of breast cancer, cerebral aneurysms that have been clipped, hypertension hyperlipidemia presenting today with painful frequent urination which started today. She has no abdominal pain no nausea or vomiting. She has no flank pain no fever. She says every time she urinates it is uncomfortable and arms hurt as well. She does not have frequent UTIs. Related Data Home Medications Medication Instructions Recorded Confirmed amlodipine 10 mg tablet 10 mg PO DAILY 12/09/18 12/09/18 hydrochlorothiazide 25 mg tablet 25 mg PO DAILY 12/09/18 12/09/18 levothyroxine 100 mcg tablet 100 mcg PO DAILY 12/09/18 12/09/18 losartan 100 mg tablet 100 mg PO DAILY 12/09/18 12/09/18 metoprolol tartrate 100 mg tablet 100 mg PO DAILY 12/09/18 12/09/18 potassium chloride 20 mEq 20 meq PO DAILY 12/09/18 12/09/18 tablet,extended release rosuvastatin 40 mg tablet 40 mg PO DAILY 12/09/18 12/09/18 venlafaxine 150 mg 150 mg PO DAILY 12/09/18 12/09/18 capsule,extended release 24 hr apixaban 5 mg tablet (Eliquis) 5 mg PO BID 08/29/21 08/29/21 fenofibrate nanocrystallized 145 145 mg PO DAILY 08/29/21 08/29/21 mg tablet Previous Rx's Medication Instructions Recorded cephalexin 500 mg capsule 500 mg PO BID 5 Days #10 cap 08/29/21 phenazopyridine 100 mg tablet 100 mg PO TID PRN #6 tab 08/29/21 (Pyridium) Allergies Allergy/AdvReac Type Severity Reaction Status Date / Time No Known Drug Allergies Allergy Verified 08/29/21 19:04 Review of Systems Review of Systems Narrative: GENERAL: Denies chills,fever HEENT: Denies throat pain RESPIRATORY: Denies dyspnea, cough, wheezing CARDIOVASCULAR: Denies chest pain, palpitations : See HPI GASTROINTESTINAL: Denies nausea, vomiting MUSCULOSKELETAL: Denies extremity pain, injury SKIN: No rash, no laceration, no pruritus NEUROLOGIC: Denies weakness, dizziness, headache, numbness 8 point review of systems is negative except for those stated above and HPI Patient History Medical History (Updated 08/29/21 @ 21:49 by Catrina Gonzalez DO) Aneurysm Surgical History No pertinent past surgical history alcohol intake frequency: 0-2 drinks per day Substance Use Type: does not use Exam Initial Vital Signs Initial Vital Signs: Vital Signs Temperature 98 F 08/29/21 18:57 Pulse Rate 96 H 08/29/21 18:57 Respiratory Rate 20 08/29/21 18:57 Blood Pressure 140/70 08/29/21 18:57 Pulse Oximetry 96 08/29/21 18:57 GENERAL: Alert well-appearing 60-year-old female and in no acute distress. HEENT: Head atraumatic,EOMI, pupils reactive, face symmetric, moist mucous membranes CARDIOVASCULAR: Regular rate and rhythm without murmurs, rubs or gallops. RESPIRATORY: Breath sounds equal bilaterally, no wheezes rales or rhonchi. ABDOMEN: Soft, nontender. Normoactive bowel sounds all 4 quadrants. No guarding or rebound. : No CVA tenderness EXTREMITIES: Normal range of motion, no clubbing or edema. Neurovascularly intact NEUROLOGICAL: Alert and oriented x4 SKIN: Warm, dry, no laceration, no petechiae, no rashes or lesions. Course Orders Ordered: ED Orders 08/29/21 20:38 Urinalysis and Microscopic Stat Urine Culture Stat Discontinued Medications Cefazolin Sodium (Cephalexin 250 Mg Prepack) 1 bottle MIS SEEINSTR ONE Stop: 08/29/21 21:45 Last Admin: 08/29/21 22:03 Dose: 500 mg Documented by: SHERIE Phenazopyridine HCl (Phenazopyridine 100 Mg Tablet) 100 mg PO NOW ONE Stop: 08/29/21 21:57 Last Admin: 08/29/21 22:04 Dose: 100 mg Documented by: SHERIE Vital Signs Vital signs: Vital Signs - 8 hr 08/29/21 22:08 Pulse Rate 98 H Respiratory Rate 16 Blood Pressure 130/62 Pulse Oximetry 99 MDM - Female Genitourinary Lab Data Labs: Lab Results 08/29/21 Range/Units 20:38 Urine Color Yellow Urine Appearance Slightly cloudy Urine pH 5 (4.5-8.0) Ur Specific [place] 1.030 (1.000-1.035) Urine Protein 2+ H (Negative) Urine Glucose (UA) Negative (Negative) g/dL Urine Ketones Negative (NEGATIVE) Urine Occult Blood 3+ H (Negative) Urine Nitrate Positive H (Negative) Urine Bilirubin Negative (NEGATIVE) Urine Urobilinogen Normal (0.2) E.U./dL Ur Leukocyte Esterase 2+ H (NEGATIVE) Urine RBC TNP Urine WBC TNP Urine Bacteria TNP Ur Culture Indicated? Specimen cultured MDM Narrative Medical decision making narrative: Patient is found have a UTI with nitrites in her urine. However she does not appear septic she is afebrile she has only had symptoms ongoing for less than 24 hours. Discharge Plan Departure Patient Disposition: Home Clinical Impression: Urinary tract infection Instructions: DI for Urinary Tract Infection (UTI) Activity Restrictions/Additional Instructions: *You have been diagnosed with UTI *What to do: At this time due to help bladder infection. It should start to improve with antibiotics. Antibiotic should start working in the next 2-3 days *Continue to take medications as directed--> SENT TO [facility] Keflex 500 mg twice a day for 5 days Pyridium 100 mg 3 times a day for 3 days only if you need for pain with urination *Follow up with your primary care provider in 2-3 days or call [phone] *Return to ER if you should have increasing pain fever nausea vomiting back pain or any new, worsening or concerning symptoms Prescriptions: New cephalexin 500 mg capsule 500 mg PO BID 5 Days Qty: 10 0RF phenazopyridine [Pyridium] 100 mg tablet 100 mg PO TID PRN (Reason: pain) Qty: 6 0RF No Action metoprolol tartrate 100 mg tablet 100 mg PO DAILY 0RF Label Comments: TK 1 T PO QD venlafaxine 150 mg capsule,extended release 24hr 150 mg PO DAILY 0RF Label Comments: TK 1 C PO D levothyroxine 100 mcg tablet 100 mcg PO DAILY 0RF Label Comments: TK 1 T PO D amlodipine 10 mg tablet 10 mg PO DAILY 0RF Label Comments: TK 1 T PO D hydrochlorothiazide 25 mg tablet 25 mg PO DAILY 0RF Label Comments: TK 1 T PO D losartan 100 mg tablet 100 mg PO DAILY 0RF Label Comments: TK 1 T PO D rosuvastatin 40 mg tablet 40 mg PO DAILY 0RF Label Comments: TK 1 T PO D potassium chloride 20 mEq tablet extended release 20 meq PO DAILY 0RF Label Comments: TK 1 T PO D Eliquis 5 mg tablet 5 mg PO BID 0RF fenofibrate nanocrystallized 145 mg tablet 145 mg PO DAILY 0RF Referrals: No Hernandez MD [Primary Care Provider] -
[2021-08-29] MEDS: cephALEXin 250 MG PREPACK 1 BOTTLE MISC (22:03)
[2021-08-29] MEDS: PHENAZOPYRIDINE 100 MG TABLET PO (22:04)
[2021-08-29 22:08] VITALS: BP 130/62; PULSE 98; RESP 16; O2SAT 99
== END 2021-08-29 22:10 | disposition home or self-care (01) ==
PROVIDERS: Emergency Provider Emergency Medicine; PCP Internal Medicine
DX: N39.0 Urinary tract infection, site not specified (principal)
CPT/HCPCS: 81001; 87077; 87086; 87186; 99283